=== PATIENT | female | born 1990 | race Two or more races ===

== ENCOUNTER 2023-05-07 14:19 | Outpatient (CLI) | payer OTHER | END 2023-05-07 15:30 | disposition home or self-care (01) | LOC: PRENATAL 14:19 | PROVIDERS: ATTEND Obstetrics & Gynecology Maternal & Fetal Medicine | DX: O35.9XX0 Maternal care for (suspected) fetal abnormality and damage, unspecified, not applicable or unspecified (principal); O35.3XX0 Maternal care for (suspected) damage to fetus from viral disease in mother, not applicable or unspecified; Z3A.24 24 weeks gestation of pregnancy ==

== ENCOUNTER 2023-07-02 15:11 | Outpatient (CLI) | payer OTHER | END 2023-07-02 18:02 | disposition home or self-care (01) | LOC: PRENATAL 15:11 | PROVIDERS: ATTEND Obstetrics & Gynecology Maternal & Fetal Medicine | DX: O26.849 Uterine size-date discrepancy, unspecified trimester (principal); O36.8199 Decreased fetal movements, unspecified trimester, other fetus; O32.9XX0 Maternal care for malpresentation of fetus, unspecified, not applicable or unspecified; Z3A.32 32 weeks gestation of pregnancy ==

== ENCOUNTER 2023-08-16 08:30 | Inpatient (IN) | payer OTHER ==
[~2023-08-16] VITALS: Ht 160 cm; Wt 2.7 kg
[2023-08-27] MEDS ORDERED: PRENATAL TABLE1 EAC4 PO (07:55)
[2023-08-27 08:22] LABS: URINE APPEARANCE Clear; URINE BILIRRUBIN Negative (NEGATIVE); URINE BLOOD Negative; URINE COLOR Yellow; URINE GLUCOSE Negative (NEGATIVE); URINE LEUKOCYTE Small; URINE NITRATE Negative; URINE PROTEIN Negative (NEGATIVE); URINE UROBILINOGEN 0.2 E.U./dl
[2023-08-27 08:23] LABS: URINE BACTERIA 3878.1 uL (0.0-1933); URINE EPITHELIAL CELLS 45.1 uL (0.0-38.8); URINE RBC 3.5 uL (0.0-20.8); URINE WBC 57.8 uL (0.0-23.2)
[2023-08-27 08:29] LABS: HEMATOCRIT 36.2 % (36.0-45.00); HEMOGLOBIN 11.9 g/dL (12.0-15.00); MEAN CELL VOLUME 88.7 fL (80.00-100.00); MEAN CORPUSCULAR HEMOGLOBIN 29.2 pg (27.00-32.0); MEAN CORPUSCULAR HGB CONC 32.9 g/dl (32.0-36.0); PLATELET COUNT 237 K/uL (150-450); RED BLOOD COUNT 4.08 M/uL (4.00-6.00); RED CELL DISTRIBUTION WIDTH 13.9 % (11.5-14.5)
[2023-08-27 08:38] LABS: INR 0.94; PARTIAL THROMBOPLASTIN TIME 25.1 SECONDS (22.0-34.0); PROTHROMBIN TIME 9.9 SECONDS (9.0-11.5)
[2023-08-27 22:23] LABS: ABG PH 7.258 (7.35-7.45); ABG PO2 18.9 mmHg (80-100); ABG pCO2 47.5 mmHg (35-45); BASE EXCESS -6.5 mmol/l; BICARBONATE 20.7 mmol/l (23-25); SaO2 20.7 %; Tco2 22.2 mmol/l; o2 21 %
[2023-08-28 06:54] LABS: HEMATOCRIT 35.4 % (36.0-45.00); HEMOGLOBIN 11.9 g/dL (12.0-15.00); MEAN CELL VOLUME 88.4 fL (80.00-100.00); MEAN CORPUSCULAR HEMOGLOBIN 29.7 pg (27.00-32.0); MEAN CORPUSCULAR HGB CONC 33.6 g/dl (32.0-36.0); PLATELET COUNT 215 K/uL (150-450); RED BLOOD COUNT 4.01 M/uL (4.00-6.00); RED CELL DISTRIBUTION WIDTH 13.6 % (11.5-14.5)
== END 2023-08-30 13:03 | disposition home or self-care (01) | DRG 788 ==
LOC: OB/GYN 08-25 15:30 → O/R 08-27 06:57 → OB/GYN 08-27 06:57 → LDR 08-27 06:57 → O/R 08-27 19:54 → OB/GYN 08-27 21:30
PROVIDERS: ADMIT Obstetrics & Gynecology; ATTEND Obstetrics & Gynecology
PROC: 3E033VJ Introduction of Other Hormone into Peripheral Vein, Percutaneous Approach (ICD-10-PCS; 2023-08-27)
PROC: 3E0P7VZ Introduction of Hormone into Female Reproductive, Via Natural or Artificial Opening (ICD-10-PCS; 2023-08-27)
PROC: 4A1HXCZ Monitoring of Products of Conception, Cardiac Rate, External Approach (ICD-10-PCS; 2023-08-27)
PROC: 10D00Z1 Extraction of Products of Conception, Low, Open Approach (ICD-10-PCS; principal; 2023-08-27 20:00)
DX: O61.0 Failed medical induction of labor (principal); O62.1 Secondary uterine inertia; O36.8130 Decreased fetal movements, third trimester, not applicable or unspecified; Z3A.40 40 weeks gestation of pregnancy; Z37.0 Single live birth; Z20.822 Contact with and (suspected) exposure to COVID-19